=== PATIENT | female | born 1965 | race American Indian/Alaskan Native ===

== ENCOUNTER 2025-06-06 13:10 | Emergency (ER) | payer BC, OTHER ==
[2025-06-06] MEDS ORDERED: Sodium Chloride 0.9% 10 ML Syringe FLUSH PRN (13:24)
[2025-06-06] MEDS: GI Cocktail Oral Solution 30 ML PO ONE (13:44)
[2025-06-06 13:46] LABS: BASOPHILS PERCENT AUTO 0.2 % (0.0-1.0); EOSINOPHILS PERCENT AUTO 1.1 % (1.0-3.0); LYMPHOCYTES PERCENT AUTO 51.2 % (20.5-50.1); MONOCYTES PERCENT AUTO 11.6 % (2-8); NEUTROPHILS PERCENT AUTO 35.9 % (42.2-75.2); PLATELET COUNT,PLT 261 10^3/uL (150-450); RED BLOOD CELL COUNT 4.24 10^6/uL (4.2-5.4); WHITE BLOOD CELL COUNT,WBC 4.7 10^3/uL (5.0-10.0)
[2025-06-06 14:05] LABS: INR 0.9 (0.9-1.2); PTT,PARTIAL THROMBOPLSTIN TIME 25.3 SEC (22.0-34.0)
[2025-06-06 14:10] LABS: A/G RATIO 1.4; ALANINE AMINOTRANSFERASE,ALT 23 U/L (14-59); ASPARTATE AMNIOTRANSFERASE,AST 17 U/L (15-37); BILIRUBIN TOTAL 0.7 mg/dL (0.2-1.0); BLOOD UREA NITROGEN,BUN 12 mg/dL (7-18); CARBON DIOXIDE,CO2 23 mmol/L (21-32); CHLORIDE,CL 105 mmol/L (98-107); CREATININE 0.83 mg/dL (0.55-1.02); EST CRCL DRUG DOSING (CG) 59.62 mL/min; GLUCOSE RANDOM 109 mg/dL (70-99); LACTIC ACID 1.2 mmol/L (0.4-2.0); POTASSIUM,K 4.0 mmol/L (3.5-5.1); PROTEIN TOTAL,TP 7.3 g/dL (6.4-8.2); SODIUM,NA 139 mmol/L (136-145)
[2025-06-06 14:12] LABS: ESTIMATED GFR 81 mL/min (>=60)
[2025-06-06] MEDS: Ketorolac 30 MG/ML SDV IM ONE (15:32)
[2025-06-06] MEDS: Iopamidol 612 MG/ML 100 ML Bottle IVPUSH ONE (15:37)
[2025-06-06] MEDS: Sucralfate Suspension 1 GM/10 ML Cup PO ONE ×2 (16:47)
== END 2025-06-06 16:58 | disposition home or self-care (01) ==
LOC: DL.ED 13:10
DX: K29.00 Acute gastritis without bleeding (principal); K22.4 Dyskinesia of esophagus
CPT/HCPCS: 36415; 71045; 74177; 80053; 83605; 83735; 84484; 85025; 85610; 85730; 86140; 93005; 96372; 96374; 99285; A9270; J1885; J2470; J3360; Q9967; 93010; 99284